=== PATIENT | female | born 1960 | race African-American/Black ===

== ENCOUNTER 2016-04-19 15:03 | Inpatient (IN) | payer OTHER ==
[2016-04-19] MEDS ORDERED: ACETAMINOPHEN 325 MG TABLET (FP) PO ONE (15:40)
[2016-04-19] MEDS ORDERED: ACETAMINOPHEN 325 MG TABLET (FP) ONE ×2 (15:42→21:02)
--- NOTE | 2016-04-19 15:43 | PDOC ---
History of Present Illness - General Chief Complaint: Injury Stated Complaint: FALL/ RT ARM Time Seen by Provider: 04/19/16 15:31 History Source: Patient - History of Present Illness Occurred: reports: just prior to arrival Pain Location: reports: upper extremity Method of Injury: Yes: fall Past History - Past Medical History Allergies/Adverse Reactions: Allergies Allergy/AdvReac Type Severity Reaction Status Date / Time Penicillins Allergy Verified 04/19/16 15:13 Home Medications: Ambulatory Orders Amlodipine Besylate 0.5 mg 04/23/11 Amlodipine Besylate [Norvasc] 10 mg PO DAILY #7 tablet 04/23/11 Carvedilol 6.25 mg 04/23/11 Ciprofloxacin [Cipro -] 250 mg PO BID #14 tablet 04/23/11 Lisinopril 40 mg 04/23/11 Warfarin Na 10 mg 04/23/11 CVA: Yes (mini stroke, no residual) HTN: Yes Other medical history: on coumadin does not know why - Psycho/Social/Smoking Cessation Hx Anxiety: No Suicidal Ideation: No Smoking Status: No Smoking History: Never smoked Have you smoked in the past 12 months: No Number of Cigarettes Smoked Daily: 0 Cigars Per Day: 0 Information on smoking cessation initiated: No Hx Alcohol Use: No Drug/Substance Use Hx: No Substance Use Type: None Review of Systems - Review of Systems Musculoskeletal: Yes: Joint Pain, Joint Swelling Neurological: Yes: Headache. No: Dizziness *Physical Exam - Vital Signs Last Vital Signs Temp Pulse Resp BP Pulse Ox 97.6 F 68 18 146/87 100 04/19/16 15:14 04/19/16 15:14 04/19/16 15:14 04/19/16 15:14 04/19/16 15:14 - Physical Exam General Appearance: Yes: Appropriately Dressed. No: Apparent Distress HEENT: positive: Normal Voice Neck: positive: Supple Respiratory/Chest: negative: Respiratory Distress Extremity: positive: Tender, Swelling, Other (R shoulder/wrist/hand uninvolved, NVI) Integumentary: positive: Dry, Warm Neurologic: positive: Fully Oriented, Alert, Normal Mood/Affect ED Treatment Course - RADIOLOGY Radiology Studies Ordered: Category Date Time Status ELBOW-RIGHT [RAD] Stat Radiology 04/19/16 15:40 Ordered Medical Decision Making - Medical Decision Making 04/19/16 15:41 55-year-old female history of hypertension, CVA, no residual deficits, on coumadin since stroke, with subtherapeutic INR on labs recently as per patient, presenting with right elbow pain and swelling status post fall. Patient states about 30 minutes ago, she tripped and fell on uneven sidewalk. Adamant that she did not hit head. Denies any other injuries. Patient well-appearing and stable with moderate swelling to posterior aspect of R elbow, no e/o further injuries at this time. -pain control -XR r/o fx 04/19/16 16:51 Pt has complicated fracture/dislocation of R elbow and reduced by Dr Mccormack in ED. As per MD, pt will need to go to the OR but may not go for 1-2 days given current AC use. MD also req CT of RUE. Case d/w pmd, Dr Hercules and pt admitted to medicine given comorbidities *DC/Admit/Observation/Transfer Diagnosis at time of Disposition: Elbow fracture, right Qualifiers: Encounter type: initial encounter Fracture type: closed Qualified Code(s): S42.401A - Unspecified fracture of lower end of right humerus, initial encounter for closed fracture - Discharge Dispostion Condition at time of disposition: Fair Admit: Yes - Referrals Referrals: Margareth Nieves MD [Primary Care Provider] -
[2016-04-19 18:12] LABS: BASOPHIL 0.3 % (0-2.0); EOSINOPHIL 0.4 % (0-4.5); MCH 28.9 pg (25.7-33.7); MCHC 32.6 g/dl (32.0-36.0); MEAN CELL VOLUME 88.8 fl (80-96); MEAN PLT VOLUME 7.6 fl (7.5-11.1); NEUTROPHILS 84.1 % (42.8-82.8); PLATELET COUNT 425 K/MM3 (134-434); WHITE BLOOD COUNT 18.7 K/mm3 (4.0-10.0)
[2016-04-19 18:25] LABS: INR 2.87 (0.82-1.09); PROTHROMBIN TIME (PATIENT) 32.3 SEC (9.98-11.88)
[2016-04-19 18:48] LABS: ALBUMIN 4.2 g/dl (3.4-5.0); BILIRUBIN,TOTAL 0.3 mg/dL (0.2-1.0); CALCIUM 9.3 mg/dL (8.5-10.1); TOT PROT 9.2 g/dl (6.4-8.2)
[2016-04-19] MEDS ORDERED: PHYTONADIONE 5 MG TABLET PO ONE (20:13)
[2016-04-19 20:29] LABS: URINE APPEARANCE CLOUDY; URINE BILIRUBIN NEGATIVE (NEGATIVE); URINE BLOOD 1+ (NEGATIVE); URINE COLOR AMBER; URINE GLUCOSE (UA) NEGATIVE (NEGATIVE); URINE KETONE TRACE (NEGATIVE); URINE LEUK ESTERASE 3+ (NEGATIVE); URINE NITRITE NEGATIVE (NEGATIVE); URINE PROTEIN 1+ (NEGATIVE); URINE UROBILINOGEN NEGATIVE E.U./dl (0.2-1.0)
--- NOTE | 2016-04-19 20:32 | HP ---
Admitting History and Physical - Primary Care Physician PCP: Margareth Nieves - Admission Chief Complaint: fall History of Present Illness: tripped and fell on sidewalk today injuring her right elbow History Source: Patient Limitations to Obtaining History: No Limitations - Past Medical History P[employer]: Yes: CVA (left thalamic infarct 2004) Cardiovascular: Yes: HTN Heme/Onc: Yes: Hypercoaguable State (antiphospholipid ab) Endocrine: Yes: Diabetes Mellitus - Smoking History Smoking history: Never smoked Have you smoked in the past 12 months: No Aproximately how many cigarettes per day: 0 - Alcohol/Substance Use Hx Alcohol Use: No - Social History Usual Living Arrangement: Yes: Alone ADL: Independent History of Recent Travel: No Home Medications - Allergies Allergies/Adverse Reactions: Allergies Allergy/AdvReac Type Severity Reaction Status Date / Time Penicillins Allergy Verified 04/19/16 15:13 - Home Medications Home Medications: Ambulatory Orders Amlodipine Besylate 0.5 mg 04/23/11 Amlodipine Besylate [Norvasc] 10 mg PO DAILY #7 tablet 04/23/11 Carvedilol 6.25 mg 04/23/11 Ciprofloxacin [Cipro -] 250 mg PO BID #14 tablet 04/23/11 Lisinopril 40 mg 04/23/11 Warfarin Na 10 mg 04/23/11 Family Disease History - Family Disease History Family Disease History: Heart Disease: Mother (HTN) Review of Systems - Review of Systems Constitutional: denies: No Symptoms HENT: denies: No Symptoms Neck: denies: No Symptoms Cardiovascular: denies: No Symptoms Respiratory: denies: No Symptoms Gastrointestinal: denies: No Symptoms Musculoskeletal: reports: Joint Pain, Joint Swelling Endocrine: denies: No Symptoms Hematology/Lymphatic: denies: No Symptoms Psychiatric: denies: No Symptoms Physical Examination Vital Signs: Vital Signs Temperature 97.6 F 04/19/16 15:14 Pulse Rate 68 04/19/16 15:14 Respiratory Rate 18 04/19/16 15:14 Blood Pressure 146/87 04/19/16 15:14 O2 Sat by Pulse Oximetry (%) 100 04/19/16 15:14 Constitutional: Yes: No Distress, Calm, Obese Eyes: Yes: EOM Intact HENT: Yes: Normocephalic Neck: Yes: Trachea Midline Cardiovascular: Yes: Regular Rate and Rhythm Respiratory: Yes: CTA Bilaterally Gastrointestinal: Yes: Normal Bowel Sounds, Soft Musculoskeletal: Yes: WNL Extremities: Yes: WNL Edema: No Peripheral Pulses WNL: Yes Labs: CBC, BMP 04/19/16 18:00 04/19/16 18:00 Abnormal Lab Results 04/19/16 04/19/16 04/19/16 16:35 18:00 18:00 WBC 18.7 H Hct 45.5 H RDW 16.0 H Neutrophils % 84.1 H INR Anion Gap 5 L Random Glucose 120 H Total Protein 9.2 H Urine Protein 1+ H Urine Ketones Trace H Urine Blood 1+ H Ur Leukocyte Esterase 3+ H 04/19/16 18:00 WBC Hct RDW Neutrophils % INR 2.87 H D Anion Gap Random Glucose Total Protein Urine Protein Urine Ketones Urine Blood Ur Leukocyte Esterase Imaging - Results X-ray: Report Reviewed Problem List - Problems (1) Elbow fracture, right Code(s): S42.401A - UNSP FRACTURE OF LOWER END OF RIGHT HUMERUS, INIT Qualifiers: Encounter type: initial encounter Fracture type: closed Qualified Code(s): S42.401A - Unspecified fracture of lower end of right humerus, initial encounter for closed fracture (2) Hypertension Code(s): I10 - ESSENTIAL (PRIMARY) HYPERTENSION (3) Obesity (BMI 30-39.9) Code(s): E66.9 - OBESITY, UNSPECIFIED (4) Antiphospholipid antibody syndrome Code(s): D68.61 - ANTIPHOSPHOLIPID SYNDROME Assessment/Plan orthopedic evaluation for surgical correction of elbow fracture hold warfarin, po vit K, pt does not want blood products to reverse INR will repeat tomorrow am may need heme eval
[2016-04-19 20:36] LABS: URINE BACTERIA MODERATE /hpf (NONE SEEN); URINE MUCUS MANY; URINE RBC 38 /hpf (0-3); URINE WBC 50 /hpf (3-5); YEAST FEW
[2016-04-19] MEDS: ACETAMINOPHEN 325 MG TABLET (FP) PO PRN (21:05)
[2016-04-19] MEDS: CARVEDILOL 6.25 MG TABLET (FP) PO SCH (23:12)
[2016-04-20] MEDS: ACETAMINOPHEN 325 MG TABLET (FP) PO PRN (04:41)
[2016-04-20 05:24] VITALS: BMI 39.6
[2016-04-20 07:57] LABS: BASOPHIL 0.4 % (0-2.0); EOSINOPHIL 0.2 % (0-4.5); MCH 30.9 pg (25.7-33.7); MEAN CELL VOLUME 90.8 fl (80-96); NEUTROPHILS 68.1 % (42.8-82.8); PLATELET COUNT 365 K/MM3 (134-434); RDW 16.2 % (11.6-15.6); WHITE BLOOD COUNT 13.3 K/mm3 (4.0-10.0)
[2016-04-20 08:08] LABS: ALBUMIN 3.6 g/dl (3.4-5.0); ANION GAP 10 (8-16); BILIRUBIN,TOTAL 0.3 mg/dL (0.2-1.0); CALCIUM 8.8 mg/dL (8.5-10.1); CO2 24 mmol/L (21-32); CREATININE 0.8 mg/dL (0.55-1.02); GLUCOSE,RANDOM 100 mg/dL (74-106); SGOT/AST 20 U/L (15-37); SGPT/ALT 22 U/L (12-78); TOT PROT 8.1 g/dl (6.4-8.2)
[2016-04-20 08:09] LABS: ALK PHOS 93 U/L (45-117)
[2016-04-20 08:10] LABS: INR 2.8 (0.82-1.09); PROTHROMBIN TIME (PATIENT) 31.4 SEC (9.98-11.88)
[2016-04-20] MEDS ORDERED: ACETAMINOPHEN WITH CODEINE 300MG/30MG TABLET PO PRN (09:34)
--- NOTE | 2016-04-20 09:41 | DS ---
Physical Examination Vital Signs: Vital Signs Temperature 97.8 F 04/20/16 05:19 Pulse Rate 81 04/20/16 05:19 Respiratory Rate 18 04/20/16 05:35 Blood Pressure 120/75 04/20/16 05:19 O2 Sat by Pulse Oximetry (%) 97 04/20/16 05:35 Constitutional: Yes: No Distress, Calm HENT: Yes: Normocephalic Neck: Yes: Trachea Midline Cardiovascular: Yes: Regular Rate and Rhythm Respiratory: Yes: CTA Bilaterally Gastrointestinal: Yes: Normal Bowel Sounds, Soft Extremities: Yes: WNL Edema: No Labs: CBC, BMP 04/20/16 07:00 04/20/16 07:00 Discharge Summary Reason For Visit: FALL INJURY Current Active Problems Antiphospholipid antibody syndrome (Acute) Elbow fracture, right (Acute) Hypertension (Acute) Obesity (BMI 30-39.9) (Acute) Hospital Course: admitted for dislocated elbow fracture INR 2.8, however pt is refusing blood products, wants to wait until INR drifts down. medically stable to go home and f/up in 2 days for repeat INR, if normalized will schedule for ORIF this Tuesday. Condition: Fair - Instructions Diet, Activity, Other Instructions: hold warfarin f/up in office at 9 am Referrals: Margareth Nieves MD [Primary Care Provider] - Disposition: HOME - Home Medications Comprehensive Discharge Medication List: Ambulatory Orders Amlodipine Besylate [Norvasc] 10 mg PO DAILY #7 tablet 04/23/11 Carvedilol 6.25 mg PO BID 04/23/11 Lisinopril 40 mg PO DAILY 04/23/11 Acetaminophen W/ Codeine #3 [Tylenol # 3 -] 1 tab PO Q6H PRN #30 tablet MDD 4 Acetaminophen [Tylenol .Regular Strength -] 650 mg PO Q4H PRN #0 tablet
[2016-04-20] MEDS ORDERED: amLODIPine BESYLATE 10 MG TABLET (FP) PO SCH (10:00)
[2016-04-20] MEDS ORDERED: LISINOPRIL 20 MG TABLET (FP) PO SCH (10:00)
[2016-04-20] MEDS: CARVEDILOL 6.25 MG TABLET (FP) PO SCH (10:07)
--- NOTE | 2016-04-20 16:14 | EKG ---
Test Reason : Blood Pressure : / mmHG Vent. Rate : 080 BPM Atrial Rate : 080 BPM P-R Int : 128 ms QRS Dur : 088 ms QT Int : 374 ms P-R-T Axes : 071 057 044 degrees QTc Int : 431 ms NORMAL SINUS RHYTHM NORMAL ECG WHEN COMPARED WITH ECG OF 23-FEB-2005 08:30, ST NO LONGER DEPRESSED IN LATERAL LEADS T WAVE INVERSION NO LONGER EVIDENT IN INFERIOR LEADS T WAVE INVERSION NO LONGER EVIDENT IN LATERAL LEADS Confirmed by TONIA HIGGINS MD ([id number]) on 04/20/2016 4:14:18 PM Referred By: Phil COLINDRES Confirmed By:TONIA HIGGINS MD
[2016-04-20 16:27] VITALS: BP 130/60; PULSE 84; TEMP 98
== END 2016-04-20 11:18 | disposition home or self-care (01) | DRG 563 ==
LOC: JER 15:03 → JERFT 15:03 → UNDOADMIN 19:46 → JERBED 19:46 → J5S 04-20 04:34
PROVIDERS: ADMIT Internal Medicine; ATTEND Internal Medicine
DX: S42.401A Unspecified fracture of lower end of right humerus, initial encounter for closed fracture (principal); D68.61 Antiphospholipid syndrome; W19.XXXA Unspecified fall, initial encounter; Y93.9 Activity, unspecified; Y92.480 Sidewalk as the place of occurrence of the external cause; Y99.9 Unspecified external cause status; E66.9 Obesity, unspecified; Z68.39 Body mass index [BMI] 39.0-39.9, adult; I10 Essential (primary) hypertension
CPT/HCPCS: 36415; 71010-TC; 73070-TC-RT; 73200-TC-RT; 80053; 81003; 81015; 84703; 85025; 85610; 86850; 86900; 86901; 93005; 93010; 99285-25

== ENCOUNTER 2016-04-23 08:46 | Day surgery (SDC) | payer OTHER ==
[2016-04-22 10:49] VITALS: BMI 39.6
--- NOTE | 2016-04-23 09:06 | HP ---
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: CVA (left thalamic infarct 2004) Cardiovascular: Yes: HTN Heme/Onc: Yes: Hypercoaguable State (antiphospholipid ab) Endocrine: Yes: Diabetes Mellitus - Current Medications Current Medications: Medication Instructions Recorded Amlodipine Besylate [Norvasc] 10 mg PO DAILY #7 tablet 04/23/11 Carvedilol 6.25 mg PO BID 04/23/11 Lisinopril 40 mg PO DAILY 04/23/11 Warfarin Sodium [Coumadin] 10 mg PO DAILY 04/22/16 Oxycodone HCl/Acetaminophen 1 - 2 tab PO Q6H #50 tab MDD 8 04/23/16 [Percocet 5-325 mg Tablet -] Satellite Physical Exam - Physical Examination General Appearance: Well Nourished, Well Developed, Alert & Oriented x3 ENT: Clear Lung: Normal air movement Heart: Regular rate & rhythm Extremities: Other (right elbow- splint intact, + swelling, nvi xrays show displaced proximal ulna fx) Neurological: Intact, Alert, Oriented Satellite Impression/Plan - Impression/Plan Impression: right displaced proximal ulna fx Operative Procedure: right ulna ORIF Date to be Performed: 04/23/16
[2016-04-23 09:32] LABS: INR 1.08 (0.82-1.09); PROTHROMBIN TIME (PATIENT) 11.9 SEC (9.98-11.88)
[2016-04-23] MEDS ORDERED: ROPIVACAINE HCL 0.5% 30ML VIAL ONE (09:55)
[2016-04-23] MEDS ORDERED: MIDAZOLAM HCL 2 MG/2 ML SINGLE DOSE VIAL ONE ×2 (09:56)
[2016-04-23] MEDS ORDERED: PROPOFOL 20 ML ONE ×2 (10:47)
[2016-04-23] MEDS ORDERED: ceFAZolin SODIUM 1 GM VIAL ONE ×3 (11:40→15:21)
[2016-04-23] MEDS ORDERED: ceFAZolin SODIUM 1 GM VIAL IVPB ONE (11:44)
[2016-04-23] MEDS ORDERED: DEXAMETHASONE SOD PHOSPHATE 4 MG/1 ML VIAL ONE (12:00)
[2016-04-23] MEDS ORDERED: morphine CARPU-JECT 2 MG/1 ML DISP.SYRIN IVPUSH PRN (12:09)
[2016-04-23] MEDS ORDERED: oxyCODONE HCL 5 MG TABLET PO PRN (12:09)
[2016-04-23] MEDS ORDERED: ONDANSETRON 4 MG/2 ML VIAL IVPUSH PRN (12:09)
[2016-04-23] MEDS ORDERED: LACTATED RINGERS SOLUTION 1,000 ML IV SCH (12:15)
--- NOTE | 2016-04-23 13:46 | OP ---
Operative Note - Note: Operative Date: 04/23/16 Pre-Operative Diagnosis: right proximal ulna fx and dislocated/fracture radial head Operation: ORIF RIGHT ULNA AND CLOSED REDUCTION OF RADIAL HEAD Post-Operative Diagnosis: Same as Pre-op Surgeon: Allen Mccormack Anesthesia: General Operative Report Dictated: Yes
[2016-04-23 15:05] VITALS: TEMP 98.2
[2016-04-23 16:07] VITALS: BP 132/69; PULSE 97
--- NOTE | 2016-04-24 07:08 | OP ---
DATE OF OPERATION: 04/23/2016 PREOPERATIVE DIAGNOSIS: Comminuted right proximal ulna fracture with dislocated and fractured right radial head. POSTOPERATIVE DIAGNOSIS: Comminuted right proximal ulna fracture with dislocated and fractured right radial head. PROCEDURE: 1. Open reduction and internal fixation of the right proximal ulna with bone allograft. 2. Closed reduction of the radial head fracture-dislocation. SURGICAL ATTENDING: Allen Mccormack MD CORN SHREDDER: STEVEN Dooley ANESTHESIA: General and regional. CLOSURE: A [place] proximal ulna/olecranon plate with appropriate screws and Vitoss bone substitute; 0 Vicryl, fascia; 2-0, subcutaneous; and gianfranco, skin. ESTIMATED BLOOD LOSS: Approximately 100 mL. COMPLICATIONS: None. CONDITION: To recovery room in stable condition. DESCRIPTION OF OPERATIVE PROCEDURE: Patient taken to the operating room on April 23, 2016. Regional anesthesia followed by general anesthesia was administered by the anesthesiologist. IV Kefzol was administered prophylactically prior to this case. Patient was placed in a sloppy lateral position. A well-padded pneumatic tourniquet was placed on the right proximal arm. The right upper extremity was prepped and draped in the usual sterile fashion. The arm was exsanguinated with an Esmarch bandage. Tourniquet was inflated to 250 mmHg. A 12-cm midline longitudinal incision curving around the olecranon was incised. Hemostasis was achieved with Bovie cautery. Sharp dissection was carried down to the fascia, which was ripped due to the fracture. Periosteal stripping more distally on the ulna was performed to expose the distal ulna. Curets and irrigation were used to clean up the ends of the fracture. There was a medial and lateral butterfly fragment. They were provisionally fixated with K-wires to the distal shaft. The arm was extended. Then, a reduction of the proximal ulna to the distal ulna was performed and held initially with a reduction clamp. After that, a proximal ulna plate was placed on the ulna and was pinned in place both proximally and distally. Fluoroscopy confirmed a good reduction of the fracture. The plate was slightly off the bone seen on the lateral, but it was flush against the soft tissue as seen intraoperatively, so it was left in that position. Multiple proximal and distal locking screws were placed by drilling with a depth gauge and screwing with the appropriate-sized screws, achieving excellent fixation. The more radial-sided butterfly fragment was fixated using a 2.7 lag screw, achieving excellent fixation. This was adjuvant fixation with some No. 1 Vicryl suture around the fragment also placed. Prior to fixating that fragment, Vitoss bone graft was placed into and around the fracture. Once the length of the plate was placed on, x-ray revealed that the radial head was reduced. There was some comminution of the radial head, but most of the radial head was intact and therefore nothing was done to the radial head itself. The elbow was taken through a range of motion, got from full extension to full flexion with good pronation and supination as well and had good stability. The wound was irrigated out. Fascia was closed by running 0 Vicryl. The bursa was closed over the plate proximally. Subcutaneous was closed with 2-0 Vicryl, and gianfranco were used for the skin. A sterile pressure dressing followed by a posterior splint was applied. Tourniquet was deflated. Total tourniquet time was approximately 1 hour and 10 minutes. No complications. Estimated blood loss was about 100 mL. Dolores [id number]
[2016-04-24] MEDS ORDERED: CEFAZOLIN 1 GM/D5W 50 ML IVPB ONE (16:00)
== END 2016-04-23 16:17 | disposition home or self-care (01) ==
LOC: JASU-SURG 08:46
PROVIDERS: ATTEND Orthopaedic Surgery
PROC: 0PSHXZZ Reposition Right Radius, External Approach (ICD-10-PCS; 2016-04-23)
PROC: 0PSK04Z Reposition Right Ulna with Internal Fixation Device, Open Approach (ICD-10-PCS; principal; 2016-04-23 11:15)
DX: S52.001A Unspecified fracture of upper end of right ulna, initial encounter for closed fracture (principal); S52.121A Displaced fracture of head of right radius, initial encounter for closed fracture; X58.XXXA Exposure to other specified factors, initial encounter; Y93.9 Activity, unspecified; Y92.9 Unspecified place or not applicable; Y99.9 Unspecified external cause status
CPT/HCPCS: 36415; 76000-TC; 85610; 94760

== ENCOUNTER 2019-02-27 19:06 | Inpatient (IN) | payer OTHER ==
[2019-02-27 19:47] VITALS: BMI 36.2
--- NOTE | 2019-02-27 19:48 | PDOC ---
Rapid Medical Evaluation Chief Complaint: Revisit, Lab Variance Time Seen by Provider: 02/27/19 19:42 Medical Evaluation: Allergies Allergy/AdvReac Type Severity Reaction Status Date / Time Penicillins Allergy Verified 04/22/16 10:39 02/27/19 19:43 I have performed a brief in-person evaluation of this patient. The patient presents with a chief complaint of:INR reported to be 12 yesterday - coumadin dose last PM 10mg Pertinent physical exam findings: well, no bleeding I have ordered the following: Pt/ INR, Cbc The patient will proceed to the ED for further evaluation. 02/27/19 19:47 Discharge Disposition - Diagnosis Abnormal INR - Discharge Dispostion Condition at time of disposition: Stable - Referrals - Patient Instructions - Post Discharge Activity
--- NOTE | 2019-02-27 21:53 | PDOC ---
*Physical Exam - Vital Signs Last Vital Signs Temp Pulse Resp BP Pulse Ox 98 F 102 H 20 127/73 99 02/27/19 19:44 02/27/19 19:44 02/27/19 19:44 02/27/19 19:44 02/27/19 19:44 ED Treatment Course - LABORATORY CBC & Chemistry Diagram: 02/27/19 22:00 02/27/19 22:00 Medical Decision Making - Medical Decision Making 02/27/19 21:52 Patient seen by the advanced practice provider under my direct supervision. Ancillary testing reviewed as necessary. I agree with plan as outlined by the advanced practice provider. Discharge - Discharge Information Problems reviewed: Yes Clinical Impression/Diagnosis: Abnormal INR Condition: Stable - Follow up/Referral Referrals: Margareth Nieves MD [Primary Care Provider] - - Patient Discharge Instructions - Post Discharge Activity
--- NOTE | 2019-02-27 21:55 | PDOC ---
History of Present Illness - General Chief Complaint: Revisit, Lab Variance Stated Complaint: SENT BY PCP/LAB VARIANCE Time Seen by Provider: 02/27/19 19:42 History Source: Patient - History of Present Illness Initial Comments: 02/27/19 21:52 58 year old female called by PCP that INR was 12. denies bleeding, hematuria, hematochezia, denies fall / injury, denies dizziness, double vision PMHX: HTN, Stroke 2004, PSHx:right elbow surgery 02/27/19 21:55 Past History - Past Medical History Allergies/Adverse Reactions: Allergies Allergy/AdvReac Type Severity Reaction Status Date / Time Penicillins Allergy Verified 04/22/16 10:39 Home Medications: Ambulatory Orders Amlodipine Besylate [Norvasc] 10 mg PO DAILY #7 tablet 04/23/11 Warfarin Sodium [Coumadin] 10 mg PO DAILY 04/22/16 Carvedilol [Coreg -] 6.25 mg PO BID 04/23/16 Ergocalciferol [Drisdol -] 50,000 unit PO WEEKLY 04/23/16 Lisinopril [Prinivil -] 40 mg PO DAILY 04/23/16 Oxycodone HCl/Acetaminophen [Percocet 5-325 mg Tablet -] 1 - 2 tab PO Q6H #50 tab MDD 8 04/23/16 metFORMIN HCL [Metformin HCl] 500 mg PO ACDIN 04/23/16 Anemia: No Asthma: No Cancer: No Cardiac Disorders: No CVA: Yes (mini stroke, no residual 2004) COPD: No Dementia: No Diabetes: No GI Disorders: No Disorders: No HTN: Yes Hypercholesterolemia: No Liver Disease: No Seizures: No Thyroid Disease: No - Psycho Social/Smoking Cessation Hx Smoking Status: No Smoking History: Never smoked Have you smoked in the past 12 months: No Number of Cigarettes Smoked Daily: 0 If you are a former smoker, when did you quit?: 2004 Cigars Per Day: 0 Hx Alcohol Use: No Drug/Substance Use Hx: No Substance Use Type: None Hx Substance Use Treatment: No Review of Systems - Review of Systems Able to Perform ROS?: Yes *Physical Exam - Vital Signs Last Vital Signs Temp Pulse Resp BP Pulse Ox 98 F 102 H 20 127/73 99 02/27/19 19:44 02/27/19 19:44 02/27/19 19:44 02/27/19 19:44 02/27/19 19:44 - Physical Exam General Appearance: Yes: Appropriately Dressed Respiratory/Chest: positive: Lungs Clear, Normal Breath Sounds Cardiovascular: positive: Regular Rhythm, Regular Rate Neurologic: positive: Fully Oriented, Alert ED Treatment Course - LABORATORY CBC & Chemistry Diagram: 02/27/19 22:00 02/27/19 22:00 Medical Decision Making - Medical Decision Making A: Elevated INR P; labs 02/28/19 00:07 INR 11. plan to hold Coumadin. patient needs serial INR levels. will admit to hospital 02/28/19 00:21 patient signed out to [email or web address] Handy Discharge - Discharge Information Problems reviewed: Yes Clinical Impression/Diagnosis: Abnormal INR, Elevated INR Condition: Stable - Admission Yes - Follow up/Referral - Patient Discharge Instructions - Post Discharge Activity
[2019-02-27 22:18] LABS: BASO % 0.9 % (0-2.0); EOS % 1.6 % (0-4.5); HEMATOCRIT 35.4 % (32.4-45.2); HEMOGLOBIN 11.4 GM/dL (10.7-15.3); LYMPH % 18.9 % (8-40); MCH 28.1 pg (25.7-33.7); MCHC 32.3 g/dl (32.0-36.0); MEAN CELL VOLUME 86.8 fl (80-96); MEAN PLT VOLUME 6.9 fl (7.5-11.1); MONO % 8.4 % (3.8-10.2); NEUT % 70.2 % (42.8-82.8); PLATELET COUNT 605 K/MM3 (134-434); RBC 4.08 M/mm3 (3.60-5.2); RDW 17.1 % (11.6-15.6); WHITE BLOOD COUNT 12.2 K/mm3 (4.0-10.0)
[2019-02-27 22:49] LABS: ALBUMIN 3.2 g/dl (3.4-5.0); BILIRUBIN,TOTAL 0.2 mg/dL (0.2-1); BLOOD UREA NITROGEN 14.9 mg/dL (7-18); CREATININE 0.8 mg/dL (0.55-1.3); POTASSIUM 3.5 mmol/L (3.5-5.1); TOT PROT 9.1 g/dl (6.4-8.2)
[2019-02-27 23:11] LABS: INR 11.35 (0.83-1.09)
[2019-02-27 23:12] LABS: PROTHROMBIN TIME (PATIENT) 137.2 SEC (9.7-13.0)
[2019-02-27 23:13] LABS: ACTIVATED PTT 127.7 SECONDS (25.2-36.5)
[2019-02-28] MEDS ORDERED: PHYTONADIONE 5 MG TABLET PO ONE (00:32)
--- NOTE | 2019-02-28 00:36 | HP ---
Admitting History and Physical - Primary Care Physician PCP: Margareth Nieves - Admission Chief Complaint: Abnormal Lab Value- INR 12 History of Present Illness: This is a 58 y/o woman with a PMHx of HTN, CVA (no residuals, 2004), Antiphospholipid Antibody Syndrome. Who presents to the ED sent in by her PMD for abnormal lab value INR 12. Patient has no current complaints. Patient denies melena, hematochezia, hematuria. Patient denies fever, chills, cough, SOB , dizziness, URBINA, CP, palpitations, AP, N/V/D, constipation, dysuria. 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: CVA (left thalamic infarct 2004) Cardiovascular: Yes: HTN Heme/Onc: Yes: Hypercoaguable State (antiphospholipid ab) Endocrine: Yes: Diabetes Mellitus - Past Surgical History Past Surgical History: Yes: None - Smoking History Smoking history: Former smoker Have you smoked in the past 12 months: No Aproximately how many cigarettes per day: 0 If you are a former smoker, when did you quit?: 2004 - Alcohol/Substance Use Hx Alcohol Use: Yes (Occasional glass of wine) History of Substance Use: reports: None - Social History Usual Living Arrangement: Yes: With Parent Do you think of yourself as: Straight/Heterosexual ADL: Independent 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 History of Recent Travel: No Home Medications - Allergies Allergies/Adverse Reactions: Allergies Allergy/AdvReac Type Severity Reaction Status Date / Time Penicillins Allergy Verified 04/22/16 10:39 - Home Medications Home Medications: Ambulatory Orders Amlodipine Besylate [Norvasc] 10 mg PO DAILY #7 tablet 04/23/11 Warfarin Sodium [Coumadin] 10 mg PO DAILY 04/22/16 Carvedilol [Coreg -] 6.25 mg PO BID 04/23/16 Ergocalciferol [Drisdol -] 50,000 unit PO WEEKLY 04/23/16 Lisinopril [Prinivil -] 40 mg PO DAILY 04/23/16 Oxycodone HCl/Acetaminophen [Percocet 5-325 mg Tablet -] 1 - 2 tab PO Q6H #50 tab MDD 8 04/23/16 metFORMIN HCL [Metformin HCl] 500 mg PO ACDIN 04/23/16 Family Medical History Family History: Unremarkable Review of Systems - Review of Systems Constitutional: reports: No Symptoms Eyes: reports: No Symptoms HENT: reports: No Symptoms Neck: reports: No Symptoms Cardiovascular: reports: No Symptoms Respiratory: reports: No Symptoms Gastrointestinal: reports: No Symptoms Genitourinary: reports: No Symptoms Breasts: reports: No Symptoms Reported Musculoskeletal: reports: No Symptoms Integumentary: reports: No Symptoms Neurological: reports: No Symptoms Endocrine: reports: No Symptoms Hematology/Lymphatic: reports: No Symptoms Psychiatric: reports: No Symptoms Pain Intensity: 0 Physical Examination Vital Signs: Vital Signs Temperature 98 F 02/27/19 19:44 Pulse Rate 102 H 02/27/19 19:44 Respiratory Rate 20 02/27/19 19:44 Blood Pressure 127/73 02/27/19 19:44 O2 Sat by Pulse Oximetry (%) 99 02/27/19 19:44 Constitutional: Yes: Well Nourished, No Distress, Calm Eyes: Yes: WNL, Conjunctiva Clear, EOM Intact, PERRL HENT: Yes: WNL, Atraumatic, Normocephalic Neck: Yes: WNL, Supple, Trachea Midline Cardiovascular: Yes: WNL, Regular Rate and Rhythm, S1, S2 Respiratory: Yes: WNL, Regular, CTA Bilaterally Gastrointestinal: Yes: WNL, Normal Bowel Sounds, Soft, Abdomen, Obese ...Rectal Exam: Yes: Guaiac Negative Renal/: Yes: WNL Breast(s): Yes: WNL Musculoskeletal: Yes: WNL Extremities: Yes: WNL Edema: No Peripheral Pulses WNL: Yes Neurological: Yes: WNL, Alert, Oriented, Cran Nerves II-XII Intact ...Motor Strength: WNL Psychiatric: Yes: WNL, Alert, Oriented Labs: CBC, BMP 02/27/19 22:00 02/27/19 22:00 Laboratory Results - last 24 hr 02/27/19 02/27/19 02/27/19 22:00 22:00 22:00 WBC 12.2 H RBC 4.08 Hgb 11.4 Hct 35.4 MCV 86.8 MCH 28.1 MCHC 32.3 RDW 17.1 H Plt Count 605 H D MPV 6.9 L D Absolute Neuts (auto) 8.5 H Neutrophils % 70.2 Lymphocytes % 18.9 Monocytes % 8.4 Eosinophils % 1.6 D Basophils % 0.9 Nucleated RBC % 0 PT with INR INR PTT (Actin FS) Sodium 136 Potassium 3.5 Chloride 104 Carbon Dioxide 25 Anion Gap 6 L BUN 14.9 Creatinine 0.8 Est GFR (CKD-EPI)AfAm 92.87 Est GFR (CKD-EPI)NonAf 80.13 Random Glucose 92 Calcium 9.0 Total Bilirubin 0.2 AST 16 ALT 12 L Alkaline Phosphatase 101 Total Protein 9.1 H Albumin 3.2 L Stool Occult Blood Blood Type A NEGATIVE Antibody Screen Negative 02/27/19 02/28/19 22:00 00:20 WBC RBC Hgb Hct MCV MCH MCHC RDW Plt Count MPV Absolute Neuts (auto) Neutrophils % Lymphocytes % Monocytes % Eosinophils % Basophils % Nucleated RBC % PT with INR 137.20 H INR 11.35 H* PTT (Actin FS) 127.7 H Sodium Potassium Chloride Carbon Dioxide Anion Gap BUN Creatinine Est GFR (CKD-EPI)AfAm Est GFR (CKD-EPI)NonAf Random Glucose Calcium Total Bilirubin AST ALT Alkaline Phosphatase Total Protein Albumin Stool Occult Blood Negative Blood Type Antibody Screen Intake & Output 02/25/19 02/26/19 02/27/19 02/28/19 23:59 23:59 23:59 23:59 Weight 87.09 kg Imaging - Results EKG: Pending Problem List - Problems (1) Elevated INR Assessment/Plan: Vitamin K given Series INRs Stool Occult neg Code(s): R79.1 - ABNORMAL COAGULATION PROFILE (2) Antiphospholipid antibody syndrome Assessment/Plan: On Coumadin Will hold 2/2 to being Supratherapuetic Series INRs Resume when level (2.0-3.0) Code(s): D68.61 - ANTIPHOSPHOLIPID SYNDROME (3) CVA (cerebral vascular accident) Assessment/Plan: Will continue to monitor and treat with interventions accordingly Hold Coumadin 2/2 11.2 Series INRs Code(s): I63.9 - CEREBRAL INFARCTION, UNSPECIFIED (4) Hypertension Assessment/Plan: Stable Monitor BP Continue home meds Monitor renal function Code(s): I10 - ESSENTIAL (PRIMARY) HYPERTENSION (5) Obesity (BMI 30-39.9) Assessment/Plan: carb controlled Diet Code(s): E66.9 - OBESITY, UNSPECIFIED Assessment/Plan This is a 58 y/o woman with a PMHx of HTN, CVA (no residuals, 2004), Antiphospholipid Antibody Syndrome. Admitted for Supratherapuetic INR for further evaluation of their emergent condition. Plan: See Problem List FEN PO fluids as tolerated Replete lytes prn Low Na Diet DVT ppx OOB SCDs Hold Coumadin secondary to Supratherapeutic level Code Status: Full Code Dispo: Requires Inpatient Care Visit type - Emergency Visit Emergency Visit: Yes ED Registration Date: 02/27/19 Care time: The patient presented to the Emergency Department on the above date and was hospitalized for further evaluation of their emergent condition. - New Patient This patient is new to me today: Yes Date on this admission: 02/28/19 - Critical Care Critical Care patient: No
[2019-02-28] MEDS ORDERED: PHYTONADIONE 5 MG TABLET ONE (02:19)
[2019-02-28] MEDS ORDERED: CARVEDILOL 6.25 MG TABLET (FP) PO ONE (02:43)
[2019-02-28] MEDS ORDERED: CARVEDILOL 3.125 MG TABLET (FP) ONE (02:58)
[2019-02-28 06:28] VITALS: TEMP 97.8
[2019-02-28 07:21] LABS: BASO % 0.7 % (0-2.0); EOS % 1.6 % (0-4.5); HEMATOCRIT 32.3 % (32.4-45.2); HEMOGLOBIN 10.8 GM/dL (10.7-15.3); LYMPH % 19.8 % (8-40); MCH 29.1 pg (25.7-33.7); MCHC 33.5 g/dl (32.0-36.0); MEAN CELL VOLUME 86.9 fl (80-96); MEAN PLT VOLUME 7.5 fl (7.5-11.1); MONO % 11.2 % (3.8-10.2); NEUT % 66.7 % (42.8-82.8); PLATELET COUNT 571 K/MM3 (134-434); RBC 3.71 M/mm3 (3.60-5.2); RDW 17.3 % (11.6-15.6); WHITE BLOOD COUNT 9.6 K/mm3 (4.0-10.0)
[2019-02-28 07:40] LABS: PROTHROMBIN TIME (PATIENT) 96.8 SEC (9.7-13.0)
[2019-02-28 07:51] LABS: BLOOD UREA NITROGEN 13.1 mg/dL (7-18); CREATININE 0.7 mg/dL (0.55-1.3); POTASSIUM 3.4 mmol/L (3.5-5.1)
[2019-02-28 08:41] LABS: INR 8.03 (0.83-1.09)
--- NOTE | 2019-02-28 09:09 | DS ---
Physical Examination Vital Signs: Vital Signs Temperature 97.8 F 02/28/19 06:27 Pulse Rate 87 02/28/19 06:27 Respiratory Rate 20 02/27/19 19:44 Blood Pressure 122/65 02/28/19 06:27 O2 Sat by Pulse Oximetry (%) 99 02/27/19 19:44 Constitutional: Yes: Well Nourished, Obese Eyes: Yes: Conjunctiva Clear HENT: Yes: Normocephalic Neck: Yes: Trachea Midline Cardiovascular: Yes: Regular Rate and Rhythm Respiratory: Yes: CTA Bilaterally Gastrointestinal: Yes: Normal Bowel Sounds, Abdomen, Obese Extremities: Yes: WNL Edema: No Integumentary: Yes: WNL Neurological: Yes: WNL ...Motor Strength: WNL Labs: CBC, BMP 02/28/19 05:47 02/28/19 05:47 Discharge Summary Problems reviewed: Yes Reason For Visit: ELEVATED INTERNATIONAL NORMALIZED RATIO (INR) Current Active Problems Abnormal INR (Acute) CVA (cerebral vascular accident) (Acute) Elevated INR (Acute) Hospital Course: sent to er for INR of 12 on warfarin for Antiphospholipid ab and h/o CVA in past , no acute bleeding received 2 doses of vitamin K INR this am 8.03 CBC stable, no sign of bleeding, neurologically intact still high bleeding risk medically stable to go home discussed with patient strict fall precautions and close monitoring for bleeding , no more warfarin will repeat labs on tuesday follow up with me in office next week she will stay with her mom for next 2 days Condition: Fair - Instructions Diet, Activity, Other Instructions: dr Nieves Tuesday after 1pm repeat labs at hospital in 2 days STOP WARFARIN strict fall precautions, any fall, head injury please return to er [facility] Referrals: Margareth Nieves MD [Primary Care Provider] - Disposition: HOME - Home Medications Comprehensive Discharge Medication List: Ambulatory Orders Amlodipine Besylate [Norvasc] 10 mg PO DAILY #7 tablet 04/23/11 Carvedilol [Coreg -] 6.25 mg PO BID 04/23/16 Lisinopril [Prinivil -] 40 mg PO DAILY 04/23/16
[2019-02-28] MEDS ORDERED: CARVEDILOL 6.25 MG TABLET (FP) PO SCH (10:00)
[2019-02-28] MEDS ORDERED: LISINOPRIL 20 MG TABLET (FP) PO SCH (10:00)
[2019-02-28] MEDS ORDERED: amLODIPine BESYLATE 10 MG TABLET (FP) PO SCH (10:00)
--- NOTE | 2019-02-28 10:48 | EKG ---
Test Reason : Blood Pressure : / mmHG Vent. Rate : 096 BPM Atrial Rate : 096 BPM P-R Int : 118 ms QRS Dur : 096 ms QT Int : 366 ms P-R-T Axes : 077 049 016 degrees QTc Int : 462 ms NORMAL SINUS RHYTHM BIATRIAL ENLARGEMENT LEFT VENTRICULAR HYPERTROPHY ABNORMAL ECG WHEN COMPARED WITH ECG OF 20-APR-2016 10:05, ST NO LONGER ELEVATED IN INFERIOR LEADS NONSPECIFIC T WAVE ABNORMALITY NOW EVIDENT IN INFERIOR LEADS Confirmed by JAYLENE TOBIN, MIGUEL ([id number]) on 02/28/2019 10:47:36 AM Referred By: Confirmed By:MIGUEL MARIEE MD
[2019-02-28 13:31] VITALS: BP 118/66; PULSE 89
== END 2019-02-28 10:50 | disposition home or self-care (01) | DRG 948 ==
LOC: JER 19:06 → JERBED 02-28 00:07
PROVIDERS: ADMIT Internal Medicine; ATTEND Internal Medicine
DX: R79.1 Abnormal coagulation profile (principal); I10 Essential (primary) hypertension; E66.9 Obesity, unspecified; Z68.36 Body mass index [BMI] 36.0-36.9, adult; Z86.73 Personal history of transient ischemic attack (TIA), and cerebral infarction without residual deficits
CPT/HCPCS: 36415; 80048; 80053; 82272; 85025; 85610; 85730; 86850; 86900; 86901; 93005; 93010; 99283-25